=== PATIENT | male | born 1995 | race Caucasian/White ===

== ENCOUNTER 2017-05-23 08:39 | Emergency (ER) | payer BC ==
[2017-05-23] MEDS ORDERED: ONDANSETRON 4 MG INJ (09:21)
[2017-05-23] MEDS: LIDOCAINE/MYLANTA 40 ML BTL PO (09:38)
[2017-05-23] MEDS: FAMOTIDINE 20 MG INJ IV (09:38)
[2017-05-23] MEDS: KETOROLAC 15 MG INJ IV (10:25)
[2017-05-23] MEDS: LORAZEPAM 2 MG INJ IV (10:25)
[2017-05-23] MEDS: ONDANSETRON 4 MG INJ IV (10:25)
[2017-05-23] MEDS: SOD CHLORIDE 0.9% 500 ML IV (10:25)
[2017-05-23 11:27] LABS: ADD MAN DIFF? NO
[2017-05-23 11:33] LABS: WHITE BLOOD COUNT 10.2 10^3/ul (4.8-10.8)
[2017-05-23 11:33] LABS: BASOPHIL # 0.1 10^3/ul (0.0-0.1); BASOPHILS % 0.7 % (0.0-2.0); EOSINOPHILS # 0.1 10^3/ul (0.0-0.5); EOSINOPHILS % 0.8 % (0.0-7.0); HEMATOCRIT 47.6 % (42.0-52.0); HEMOGLOBIN 16.1 g/dl (14.0-18.0); LYMPHOCYTES # 1.5 10^3/ul (0.8-2.9); LYMPHOCYTES % 14.7 % (18.0-55.0); MEAN CORPUSCULAR HEMOGLOBIN 30.8 pg (29.0-33.0); MEAN CORPUSCULAR HGB CONC 33.8 g/dl (32.0-37.0); MEAN CORPUSCULAR VOLUME 91.2 fl (72.0-104.0); MEAN PLATELET VOLUME 10.6 fl (7.4-10.4); MONOCYTE # 0.6 10^3/ul (0.3-0.9); MONOCYTES % 5.4 % (0.0-13.0); NEUTROPHIL # 7.9 10^3/ul (1.6-7.5); PLATELET COUNT 249 10^3/UL (140-415); RED BLOOD COUNT 5.22 10^6/ul (4.70-6.10); RED CELL DISTRIBUTION WIDTH 12.3 % (11.5-14.5)
[2017-05-23 11:34] LABS: ADD UMIC NO; UR ASCORBIC ACID NEGATIVE (NEGATIVE); UR BILIRUBIN (Dip) NEGATIVE (NEGATIVE); UR BLOOD (Dip) NEGATIVE (NEGATIVE); UR CLARITY CLEAR (CLEAR); UR COLOR YELLOW (YELLOW); UR GLUCOSE (Dip) NEGATIVE (NEGATIVE); UR KETONES (Dip) NEGATIVE (NEGATIVE); UR LEUKOCYTE ESTERASE (Dip) NEGATIVE Leu/ul (NEGATIVE); UR NITRITE (Dip) NEGATIVE (NEGATIVE); UR SPECIFIC GRAVITY (Dip) 1.011 (1.003-1.030); UR TOTAL PROTEIN (Dip) NEGATIVE (NEGATIVE); UR UROBILINOGEN (Dip) NEGATIVE (NEGATIVE)
[2017-05-23 11:56] LABS: ALANINE AMINOTRANSFERASE 31 IU/L (13-69); ALBUMIN 5.3 g/dl (3.3-4.9); ALBUMIN/GLOBULIN RATIO 1.55; ALKALINE PHOSPHATASE 53 IU/L (42-121); ANION GAP 18 (8-16); ASPARTATE AMINO TRANSFERASE 45 IU/L (15-46); BILIRUBIN,INDIRECT 0.3 mg/dl (0-1.1); BILIRUBIN,TOTAL 0.3 mg/dl (0.2-1.3); BLOOD UREA NITROGEN 11 mg/dl (7-20); CALCIUM 10.3 mg/dl (8.4-10.2); CARBON DIOXIDE 30 mmol/L (21-31); CHLORIDE 100 mmol/L (97-110); CREATININE 0.87 mg/dl (0.61-1.24); GLUCOSE 101 mg/dl (70-220); LIPASE 71 U/L (23-300); POTASSIUM 4.3 mmol/L (3.5-5.1); SODIUM 144 mmol/L (135-144); TOTAL PROTEIN 8.7 g/dl (6.1-8.1)
== END 2017-05-23 13:14 | disposition home or self-care (01) ==
LOC: FTE 08:39
DX: R10.13 Epigastric pain (principal); R11.10 Vomiting, unspecified; F17.210 Nicotine dependence, cigarettes, uncomplicated
CPT/HCPCS: 36415; 80053; 81003; 83690; 85025; 96374; 96375; 99284-25

== ENCOUNTER 2017-05-27 09:29 | Emergency (ER) | payer BC ==
[2017-05-27] MEDS: ONDANSETRON (ODT) 4 MG TAB ODT (10:03)
[2017-05-27] MEDS: PANTOPRAZOLE (EC) 40 MG TAB PO (10:03)
[2017-05-27] MEDS: LORAZEPAM 1 MG TAB PO (10:03)
[2017-05-27] MEDS: LIDOCAINE/MYLANTA 40 ML BTL PO (10:03)
[2017-05-27] MEDS: LORAZEPAM 2 MG INJ IM (10:19)
== END 2017-05-27 11:20 | disposition home or self-care (01) ==
LOC: E/R 09:29
DX: R11.2 Nausea with vomiting, unspecified (principal); F17.210 Nicotine dependence, cigarettes, uncomplicated
CPT/HCPCS: 96372; 99284-25

== ENCOUNTER 2017-06-13 13:57 | Emergency (ER) | payer BC ==
[2017-06-13 14:54] LABS: URINE BLOOD (Dip) POC Negative (NEGATIVE); URINE GLUCOSE (Dip) POC Negative (NEGATIVE); URINE KETONES (Dip) POC Negative (NEGATIVE); URINE LEUKOCYTE EST (Dip) POC Negative (NEGATIVE); URINE NITRITE (Dip) POC Negative (NEGATIVE); URINE TOTAL PROTEIN POC Negative (NEGATIVE)
[2017-06-13 14:54] LABS: URINE PH (Dip) POC 7.5 (5.0-8.5)
[2017-06-13] MEDS: LIDOCAINE/MYLANTA 40 ML BTL PO (15:03)
[2017-06-13] MEDS: ONDANSETRON 4 MG INJ IV (15:03)
[2017-06-13] MEDS: SOD CHLORIDE 0.9% 1,000 ML IV (15:03)
[2017-06-13] MEDS: ACETAMINOPHEN 325 MG TAB PO (15:03)
[2017-06-13] MEDS: FAMOTIDINE 20 MG INJ IV (15:03)
[2017-06-13 15:04] LABS: ADD MAN DIFF? NO
[2017-06-13 15:05] LABS: BASOPHIL # 0.1 10^3/ul (0.0-0.1); BASOPHILS % 0.4 % (0.0-2.0); EOSINOPHILS % 0.1 % (0.0-7.0); HEMATOCRIT 43.2 % (42.0-52.0); HEMOGLOBIN 14.8 g/dl (14.0-18.0); LYMPHOCYTES # 1.9 10^3/ul (0.8-2.9); LYMPHOCYTES % 13.7 % (18.0-55.0); MEAN CORPUSCULAR HEMOGLOBIN 31.2 pg (29.0-33.0); MEAN CORPUSCULAR HGB CONC 34.3 g/dl (32.0-37.0); MEAN CORPUSCULAR VOLUME 90.9 fl (72.0-104.0); MEAN PLATELET VOLUME 10.4 fl (7.4-10.4); MONOCYTE # 0.7 10^3/ul (0.3-0.9); MONOCYTES % 5.3 % (0.0-13.0); NEUTROPHIL # 11.2 10^3/ul (1.6-7.5); NEUTROPHILS % 80.1 % (30.0-74.0); PLATELET COUNT 214 10^3/UL (140-415); RED BLOOD COUNT 4.75 10^6/ul (4.70-6.10); RED CELL DISTRIBUTION WIDTH 12.5 % (11.5-14.5)
[2017-06-13 15:25] LABS: ALANINE AMINOTRANSFERASE 29 IU/L (13-69); ALBUMIN 4.6 g/dl (3.3-4.9); ALBUMIN/GLOBULIN RATIO 1.31; ALKALINE PHOSPHATASE 45 IU/L (42-121); ANION GAP 18 (8-16); ASPARTATE AMINO TRANSFERASE 25 IU/L (15-46); BILIRUBIN,INDIRECT 0.4 mg/dl (0-1.1); BILIRUBIN,TOTAL 0.4 mg/dl (0.2-1.3); BLOOD UREA NITROGEN 10 mg/dl (7-20); CARBON DIOXIDE 27 mmol/L (21-31); CHLORIDE 104 mmol/L (97-110); CREATININE 0.85 mg/dl (0.61-1.24); GLUCOSE 111 mg/dl (70-220); LIPASE 75 U/L (23-300); POTASSIUM 3.6 mmol/L (3.5-5.1); SODIUM 145 mmol/L (135-144); TOTAL PROTEIN 8.1 g/dl (6.1-8.1)
== END 2017-06-13 16:01 | disposition home or self-care (01) ==
LOC: FTE 13:57
DX: R10.13 Epigastric pain (principal); F17.210 Nicotine dependence, cigarettes, uncomplicated
CPT/HCPCS: 36415; 80053; 81003; 83690; 85025; 96374; 96375; 99284-25

== ENCOUNTER 2017-06-14 07:10 | Emergency (ER) | payer BC ==
[2017-06-14] MEDS: ONDANSETRON 4 MG INJ IV (07:58)
[2017-06-14] MEDS: morphine 4 MG/ML VIAL IV (07:58)
[2017-06-14] MEDS: SOD CHLORIDE 0.9% 1,000 ML IV (07:59)
[2017-06-14 08:25] LABS: ADD MAN DIFF? NO
[2017-06-14] MEDS: LORAZEPAM 2 MG INJ IV ×2 (08:26→10:34)
[2017-06-14 08:29] LABS: BASOPHIL # 0.1 10^3/ul (0.0-0.1); BASOPHILS % 0.7 % (0.0-2.0); EOSINOPHILS % 0.4 % (0.0-7.0); HEMATOCRIT 44.7 % (42.0-52.0); HEMOGLOBIN 15.3 g/dl (14.0-18.0); LYMPHOCYTES # 1.9 10^3/ul (0.8-2.9); LYMPHOCYTES % 20.6 % (18.0-55.0); MEAN CORPUSCULAR HEMOGLOBIN 31.3 pg (29.0-33.0); MEAN CORPUSCULAR HGB CONC 34.2 g/dl (32.0-37.0); MEAN CORPUSCULAR VOLUME 91.4 fl (72.0-104.0); MEAN PLATELET VOLUME 10.3 fl (7.4-10.4); MONOCYTE # 0.5 10^3/ul (0.3-0.9); MONOCYTES % 5.7 % (0.0-13.0); NEUTROPHIL # 6.6 10^3/ul (1.6-7.5); NEUTROPHILS % 72.3 % (30.0-74.0); PLATELET COUNT 219 10^3/UL (140-415); RED BLOOD COUNT 4.89 10^6/ul (4.70-6.10); RED CELL DISTRIBUTION WIDTH 12.6 % (11.5-14.5)
[2017-06-14 08:29] LABS: WHITE BLOOD COUNT 9.1 10^3/ul (4.8-10.8)
[2017-06-14 08:46] LABS: ALANINE AMINOTRANSFERASE 32 IU/L (13-69); ALBUMIN 4.3 g/dl (3.3-4.9); ALKALINE PHOSPHATASE 43 IU/L (42-121); ANION GAP 16 (8-16); ASPARTATE AMINO TRANSFERASE 23 IU/L (15-46); BILIRUBIN,INDIRECT 0.5 mg/dl (0-1.1); BILIRUBIN,TOTAL 0.5 mg/dl (0.2-1.3); BLOOD UREA NITROGEN 10 mg/dl (7-20); CALCIUM 10.1 mg/dl (8.4-10.2); CARBON DIOXIDE 28 mmol/L (21-31); CHLORIDE 105 mmol/L (97-110); CREATININE 0.85 mg/dl (0.61-1.24); GLUCOSE 117 mg/dl (70-220); LIPASE 65 U/L (23-300); POTASSIUM 3.9 mmol/L (3.5-5.1); SODIUM 145 mmol/L (135-144); TOTAL PROTEIN 7.6 g/dl (6.1-8.1)
[2017-06-14 10:27] LABS: ADD UMIC NO; UR ASCORBIC ACID NEGATIVE (NEGATIVE); UR BILIRUBIN (Dip) NEGATIVE (NEGATIVE); UR BLOOD (Dip) NEGATIVE (NEGATIVE); UR CLARITY CLEAR (CLEAR); UR COLOR STRAW (YELLOW); UR GLUCOSE (Dip) NEGATIVE (NEGATIVE); UR KETONES (Dip) NEGATIVE (NEGATIVE); UR LEUKOCYTE ESTERASE (Dip) NEGATIVE Leu/ul (NEGATIVE); UR NITRITE (Dip) NEGATIVE (NEGATIVE); UR SPECIFIC GRAVITY (Dip) 1.009 (1.003-1.030); UR TOTAL PROTEIN (Dip) NEGATIVE (NEGATIVE); UR UROBILINOGEN (Dip) NEGATIVE (NEGATIVE)
== END 2017-06-14 11:04 | disposition home or self-care (01) ==
LOC: FTE 07:10
DX: G43.A0 Cyclical vomiting, in migraine, not intractable (principal); F17.210 Nicotine dependence, cigarettes, uncomplicated
CPT/HCPCS: 36415; 80053; 81003; 83690; 85025; 96374; 96375; 96376; 99284-25

== ENCOUNTER 2017-06-15 09:26 | Observation (INO) | payer BC ==
[2017-06-15] MEDS: LIDOCAINE/MYLANTA 40 ML BTL PO (09:55)
[2017-06-15] MEDS: FAMOTIDINE 20 MG INJ IV (09:55)
[2017-06-15] MEDS: ONDANSETRON 4 MG INJ IV ×2 (09:55→20:45)
[2017-06-15] MEDS: SOD CHLORIDE 0.9% 1,000 ML IV ×3 (09:55→23:53)
[2017-06-15] MEDS: BELLADONNA/PHENOBARBITAL TAB PO (09:56)
[2017-06-15 10:14] LABS: ADD MAN DIFF? NO
[2017-06-15 10:16] LABS: WHITE BLOOD COUNT 11.3 10^3/ul (4.8-10.8)
[2017-06-15 10:16] LABS: BASOPHIL # 0.1 10^3/ul (0.0-0.1); BASOPHILS % 0.5 % (0.0-2.0); EOSINOPHILS % 0.4 % (0.0-7.0); HEMATOCRIT 43.5 % (42.0-52.0); HEMOGLOBIN 14.9 g/dl (14.0-18.0); LYMPHOCYTES # 1.2 10^3/ul (0.8-2.9); LYMPHOCYTES % 10.6 % (18.0-55.0); MEAN CORPUSCULAR HEMOGLOBIN 31.2 pg (29.0-33.0); MEAN CORPUSCULAR HGB CONC 34.3 g/dl (32.0-37.0); MEAN PLATELET VOLUME 10.2 fl (7.4-10.4); MONOCYTE # 0.7 10^3/ul (0.3-0.9); NEUTROPHIL # 9.3 10^3/ul (1.6-7.5); NEUTROPHILS % 82.2 % (30.0-74.0); PLATELET COUNT 230 10^3/UL (140-415); RED BLOOD COUNT 4.78 10^6/ul (4.70-6.10)
[2017-06-15] MEDS: DICYCLOMINE 20 MG INJ IM (10:21)
[2017-06-15 10:37] LABS: ALANINE AMINOTRANSFERASE 29 IU/L (13-69); ALBUMIN 4.5 g/dl (3.3-4.9); ALBUMIN/GLOBULIN RATIO 1.36; ALKALINE PHOSPHATASE 47 IU/L (42-121); ANION GAP 16 (8-16); ASPARTATE AMINO TRANSFERASE 22 IU/L (15-46); BILIRUBIN,INDIRECT 0.4 mg/dl (0-1.1); BILIRUBIN,TOTAL 0.4 mg/dl (0.2-1.3); BLOOD UREA NITROGEN 10 mg/dl (7-20); CARBON DIOXIDE 29 mmol/L (21-31); CHLORIDE 101 mmol/L (97-110); CREATININE 0.83 mg/dl (0.61-1.24); GLUCOSE 109 mg/dl (70-220); LIPASE 77 U/L (23-300); POTASSIUM 3.8 mmol/L (3.5-5.1); SODIUM 142 mmol/L (135-144); TOTAL PROTEIN 7.8 g/dl (6.1-8.1)
[2017-06-15 10:53] LABS: ADD UMIC NO; UR ASCORBIC ACID NEGATIVE (NEGATIVE); UR BILIRUBIN (Dip) NEGATIVE (NEGATIVE); UR BLOOD (Dip) NEGATIVE (NEGATIVE); UR CLARITY CLEAR (CLEAR); UR COLOR STRAW (YELLOW); UR GLUCOSE (Dip) NEGATIVE (NEGATIVE); UR KETONES (Dip) NEGATIVE (NEGATIVE); UR LEUKOCYTE ESTERASE (Dip) NEGATIVE Leu/ul (NEGATIVE); UR NITRITE (Dip) NEGATIVE (NEGATIVE); UR SPECIFIC GRAVITY (Dip) 1.004 (1.003-1.030); UR TOTAL PROTEIN (Dip) NEGATIVE (NEGATIVE); UR UROBILINOGEN (Dip) NEGATIVE (NEGATIVE)
[2017-06-15] MEDS ORDERED: ONDANSETRON 4 MG INJ IV (11:30)
[2017-06-15] MEDS ORDERED: ACETAMINOPHEN 325 MG TAB PO (14:00)
[2017-06-15] MEDS ORDERED: NACL 0.9% 3 ML SYG IV (14:00)
[2017-06-15] MEDS: ACETAMINOPHEN 325 MG TAB PO (15:40)
[2017-06-15] MEDS: PROPOFOL 40 ML (17:21)
[2017-06-15] MEDS: LIDOCAINE 2% (SDV) 5 ML INJ (17:21)
[2017-06-15] MEDS: METOCLOPRAMIDE 10 MG INJ IV (18:01)
[2017-06-15] MEDS: PANTOPRAZOLE 40 MG INJ IV (19:00)
[2017-06-15] MEDS: morphine 2 MG INJ IV (20:18)
[2017-06-16] MEDS: METOCLOPRAMIDE 10 MG INJ IV ×2 (00:57→05:55)
[2017-06-16] MEDS: PANTOPRAZOLE 40 MG INJ IV (05:54)
[2017-06-16] MEDS: morphine 2 MG INJ IV (05:54)
[2017-06-16] MEDS: SOD CHLORIDE 0.9% 1,000 ML IV (05:54)
[2017-06-16 06:16] LABS: ADD MAN DIFF? NO
[2017-06-16 06:28] LABS: WHITE BLOOD COUNT 9.5 10^3/ul (4.8-10.8)
[2017-06-16 06:28] LABS: BASOPHIL # 0.1 10^3/ul (0.0-0.1); BASOPHILS % 0.7 % (0.0-2.0); EOSINOPHILS # 0.1 10^3/ul (0.0-0.5); EOSINOPHILS % 0.6 % (0.0-7.0); HEMATOCRIT 42.6 % (42.0-52.0); HEMOGLOBIN 14.7 g/dl (14.0-18.0); LYMPHOCYTES # 2.5 10^3/ul (0.8-2.9); LYMPHOCYTES % 26.1 % (18.0-55.0); MEAN CORPUSCULAR HEMOGLOBIN 31.2 pg (29.0-33.0); MEAN CORPUSCULAR HGB CONC 34.5 g/dl (32.0-37.0); MEAN CORPUSCULAR VOLUME 90.4 fl (72.0-104.0); MEAN PLATELET VOLUME 10.5 fl (7.4-10.4); MONOCYTE # 0.7 10^3/ul (0.3-0.9); MONOCYTES % 7.2 % (0.0-13.0); NEUTROPHIL # 6.2 10^3/ul (1.6-7.5); PLATELET COUNT 206 10^3/UL (140-415); RED BLOOD COUNT 4.71 10^6/ul (4.70-6.10); RED CELL DISTRIBUTION WIDTH 12.3 % (11.5-14.5)
[2017-06-16 07:02] LABS: HEMOGLOBIN A1C 5.1 % (0-5.9)
[2017-06-16 07:18] LABS: ALANINE AMINOTRANSFERASE 25 IU/L (13-69); ALBUMIN 3.9 g/dl (3.3-4.9); ALKALINE PHOSPHATASE 40 IU/L (42-121); ANION GAP 13 (8-16); ASPARTATE AMINO TRANSFERASE 27 IU/L (15-46); BILIRUBIN,INDIRECT 0.4 mg/dl (0-1.1); BILIRUBIN,TOTAL 0.4 mg/dl (0.2-1.3); BLOOD UREA NITROGEN 8 mg/dl (7-20); CALCIUM 9.8 mg/dl (8.4-10.2); CARBON DIOXIDE 30 mmol/L (21-31); CHLORIDE 104 mmol/L (97-110); CHOLESTEROL 158 mg/dl (100-200); CREATININE 0.88 mg/dl (0.61-1.24); GLUCOSE 98 mg/dl (70-220); HDL CHOLESTEROL 31 mg/dl (30-63); LDL CHOLESTEROL,CALCULATED 100 mg/dl; MAGNESIUM 1.9 mg/dl (1.7-2.5); PHOSPHORUS 3.9 mg/dl (2.5-4.9); SODIUM 143 mmol/L (135-144); TOTAL PROTEIN 6.9 g/dl (6.1-8.1); TRIGLYCERIDES 135 mg/dl (0-149)
[2017-06-16 07:40] LABS: THYROID STIMULATING HORMONE 0.619 MIU/L (0.465-4.680)
[2017-06-16] MEDS ORDERED: SIMETH/SOD BICARB/CIT AC PKT (E-Z- GAS II) PO (11:08)
[2017-06-16] MEDS ORDERED: BARIUM SULFATE 135 ML (E-Z HD) PO (11:08)
== END 2017-06-16 15:30 | disposition hospice, home (50) ==
LOC: E/R 09:26 → MS3 11:16 → MS2 21:20
DX: K29.51 Unspecified chronic gastritis with bleeding (principal); K21.0 Gastro-esophageal reflux disease with esophagitis; F12.10 Cannabis abuse, uncomplicated; Z87.11 Personal history of peptic ulcer disease
CPT/HCPCS: 36415; 74019; 74176; 74240; 74250; 80053; 80061; 81003; 83036; 83690; 83735; 84100; 84443; 85025; 96372; 96374; 96375; 99285-25